=== PATIENT | female | born 1965 | race Caucasian/White ===

== ENCOUNTER 2022-04-11 14:11 | Inpatient (IN) | payer OTHER ==
[2022-04-11 16:43] LABS: #Lymphocytes 1.5 thou/uL (1.20-3.40); #Monocytes 1.1 thou/uL (0.11-0.59); #Neutrophils 12.1 thou/uL (1.40-6.50); %Basophils 0.3 % (0.0-1.0); %Eosinophils 0.3 % (0.0-10.0); %Lymphocytes 10.1 % (21.0-51.0); %Monocytes 7.3 % (0.0-10.0); %Neutrophils 82.1 % (42.0-75.0); Mean Corpuscular HGB CONC 31.9 g/dL (32.0-36.0); Mean Corpuscular Volume 94.1 fL (78.0-98.0); Mean Platelet Volume 9.3 fL (7.4-10.4); Platelet Count 167 thou/uL (130-400); RBC Distribution Width 13.5 % (11.5-14.5); Red Blood Cell (RBC) Count 5.66 mill/uL (4.20-5.40); White Blood Cell (WBC) Count 14.8 thou/uL (4.8-10.8)
[2022-04-11 17:06] LABS: ALT (SGPT) 7 U/L (8-55); AST (SGOT) 11 U/L (5-34); Albumin 4.1 g/dL (3.5-5.0); Alkaline Phosphatase 111 U/L (40-110); Anion Gap 18 mmol/L (10-20); BUN (Urea Nitrogen) 18 mg/dL (9.8-20.1); Bilirubin, Total 0.8 mg/dL (0.2-1.2); Calc. Creatinine Clearance 0 mL/min (70-130); Calcium 10.1 mg/dL (7.8-10.44); Carbon Dioxide 25 mmol/L (22-29); Chloride 97 mmol/L (98-107); Estimated GFR 55; Globulin 4.4 g/dL (2.4-3.5); Glucose 254 mg/dL (70-105); Potassium 3.8 mmol/L (3.5-5.1); Protein, Total 8.5 g/dL (6.0-8.3); Sodium 136 mmol/L (136-145)
[2022-04-11] MEDS ORDERED: Morphine 4 MG/ML VIAL ONE (19:50)
[2022-04-11] MEDS ORDERED: Morphine 2 MG/ML VIAL SLOW IVP SCH (23:45)
[2022-04-12 01:02] LABS: SARS-CoV-2 NAA Rapid Test Not Detected (NotDetected)
[2022-04-12 01:11] VITALS: BMI 46.7
[2022-04-12] MEDS ORDERED: Acetaminophen 650 MG Suppository PR PRN (05:21)
[2022-04-12] MEDS ORDERED: Acetaminophen 325 MG TAB PO PRN (05:21)
[2022-04-12] MEDS ORDERED: Ondansetron PF 4 MG/2 ML Vial IVP PRN (05:21)
[2022-04-12] MEDS ORDERED: Ondansetron ODT 4 MG TAB PO PRN (05:21)
[2022-04-12] MEDS ORDERED: Sodium Chloride 0.9% 500 ML IV SCH (05:30)
[2022-04-12] MEDS ORDERED: Sodium Chloride 0.9% 1,000 ML IV SCH ×2 (05:30)
[2022-04-12] MEDS ORDERED: Meropenem 1 GM in Sodium Chloride 0.9% 100 ML IVPB SCH (06:00)
[2022-04-12 06:08] LABS: #Lymphocytes 1.2 thou/uL (1.20-3.40); #Monocytes 1.6 thou/uL (0.11-0.59); #Neutrophils 12.1 thou/uL (1.40-6.50); %Basophils 0.1 % (0.0-1.0); %Eosinophils 0.2 % (0.0-10.0); %Lymphocytes 8.1 % (21.0-51.0); %Monocytes 10.4 % (0.0-10.0); %Neutrophils 81.2 % (42.0-75.0); Mean Corpuscular HGB CONC 32.3 g/dL (32.0-36.0); Mean Corpuscular Hemoglobin 30.1 pg (27.0-31.0); Mean Corpuscular Volume 93.2 fL (78.0-98.0); Mean Platelet Volume 9.4 fL (7.4-10.4); Platelet Count 181 thou/uL (130-400); RBC Distribution Width 13.6 % (11.5-14.5); Red Blood Cell (RBC) Count 4.67 mill/uL (4.20-5.40)
[2022-04-12 06:24] LABS: Anion Gap 14 mmol/L (10-20); BUN (Urea Nitrogen) 20 mg/dL (9.8-20.1); Calc. Creatinine Clearance 82 mL/min (70-130); Calcium 9.1 mg/dL (7.8-10.44); Carbon Dioxide 26 mmol/L (22-29); Chloride 101 mmol/L (98-107); Estimated GFR 43; Glucose 358 mg/dL (70-105); Potassium 4.5 mmol/L (3.5-5.1); Sodium 136 mmol/L (136-145)
[2022-04-12 07:45] LABS: Bacteria/HPF 3+ HPF (None Seen); Bilirubin Negative (Negative); Blood, Urine 2+ (Negative); Clarity Turbid (Clear); Glucose, Urine (Dipstick) 300 mg/dL (Negative); Ketone, Urine Trace mg/dL (Negative); Leukocyte 25 Leu/uL (Negative); Nitrite 1+ (Negative); Protein, Urine (Dipstick) 600 mg/dL (Neg-Trace); Specific Gravity, Urine 1.038 (1.002-1.036); Urobilinogen Normal mg/dL (Less than 2); WBC/HPF 21-50 HPF (0-3)
[2022-04-12] MEDS ORDERED: Non-Formulary Item 1 EACH (Oxycodone Hcl/Acetaminophen [Percocet] 10 MG/325 MG Tablet) PO PRN (09:31)
[2022-04-12] MEDS ORDERED: HYDROcodone/Acetaminophen 5/325 mg Tablet PO PRN (09:36)
[2022-04-12] MEDS ORDERED: Dextrose 5% in Water 1,000 ML IV PRN (09:43)
[2022-04-12] MEDS ORDERED: Dextrose 50% Abboject 50 ML SYRINGE SLOW IVP PRN (09:43)
[2022-04-12] MEDS ORDERED: Insulin Glargine 30 UNITS/0.3 ML VIAL SC SCH (10:00)
[2022-04-12] MEDS ORDERED: Nicotine 14 MG PATCH TD SCH (10:00)
[2022-04-12] MEDS ORDERED: Famotidine 20 MG TAB PO SCH (10:00)
[2022-04-12] MEDS ORDERED: Heparin 5,000 UNITS/ML VIAL SC SCH (10:00)
[2022-04-12] MEDS: oxyCODONE/Acetaminophen 5 mg/325 mg Tablet PO PRN ×3 (10:25→21:00)
[2022-04-12] MEDS: HumaLOG 300 UNITS/3 ML VIAL SC PRN ×2 (11:23→17:33)
[2022-04-12 11:30] LABS: Actual Bicarbonate (HCO3v) 27 mEq/L (22-28); Base Excess 0.2 mEq/L (-2.0 to +3.0); Calcium, Ionized (venous) 1.11 mmol/L (1.16-1.32); Chloride (VBG) 103 mmol/L (98-106); Hemoglobin (Hb) 14.1 g/dL (11.7-16.0); Potassium (VBG) 4.05 mmol/L (3.70-5.30); Sodium 136.9 mmol/L (133-146); pH (venous) 7.33 (7.32-7.43)
[2022-04-12] MEDS ORDERED: Furosemide 20 MG/2 ML VIAL SLOW IVP SCH (11:45)
[2022-04-12] MEDS: Methocarbamol 500 MG TAB PO SCH ×2 (14:12→21:01)
[2022-04-12] MEDS: Meropenem 1 GM in Sodium Chloride 0.9% 100 ML IVPB SCH (14:13)
[2022-04-12] MEDS: Heparin 5,000 UNITS/ML VIAL SC SCH ×2 (14:13→21:01)
[2022-04-12] MEDS: HYDROcodone/Acetaminophen 5/325 mg Tablet PO PRN ×2 (17:32→22:21)
[2022-04-12] MEDS: Pregabalin 75 MG CAP PO SCH (20:59)
[2022-04-12] MEDS ORDERED: PREGABALIN 225 MG PO SCH (21:00)
[2022-04-12] MEDS: Nortriptyline HCl 25 MG CAP PO SCH (21:01)
[2022-04-12] MEDS: Famotidine 20 MG TAB PO SCH (21:01)
[2022-04-12] MEDS: Atorvastatin Calcium 40 MG TAB PO SCH (21:01)
[2022-04-13] MEDS: Meropenem 1 GM in Sodium Chloride 0.9% 100 ML IVPB SCH ×3 (01:57→19:53)
[2022-04-13] MEDS: HYDROcodone/Acetaminophen 5/325 mg Tablet PO PRN ×3 (05:00→14:02)
[2022-04-13] MEDS: HumaLOG 300 UNITS/3 ML VIAL SC PRN (05:59)
[2022-04-13 06:14] LABS: #Eosinphils 0.1 thou/uL (0.0-0.7); #Lymphocytes 1.1 thou/uL (1.20-3.40); #Monocytes 1.5 thou/uL (0.11-0.59); #Neutrophils 12.6 thou/uL (1.40-6.50); %Basophils 0.2 % (0.0-1.0); %Eosinophils 0.6 % (0.0-10.0); %Lymphocytes 7.1 % (21.0-51.0); %Monocytes 9.5 % (0.0-10.0); %Neutrophils 82.8 % (42.0-75.0); Hemoglobin 12.7 g/dL (12.0-16.0); Mean Corpuscular Hemoglobin 29.3 pg (27.0-31.0); Mean Corpuscular Volume 94.7 fL (78.0-98.0); Mean Platelet Volume 9.4 fL (7.4-10.4); Platelet Count 168 thou/uL (130-400); RBC Distribution Width 13.6 % (11.5-14.5); Red Blood Cell (RBC) Count 4.34 mill/uL (4.20-5.40); White Blood Cell (WBC) Count 15.3 thou/uL (4.8-10.8)
[2022-04-13 07:36] LABS: ALT (SGPT) Less than 7 U/L (8-55); AST (SGOT) 8 U/L (5-34); Albumin 2.8 g/dL (3.5-5.0); Alkaline Phosphatase 86 U/L (40-110); Anion Gap 15 mmol/L (10-20); BUN (Urea Nitrogen) 21 mg/dL (9.8-20.1); Bilirubin, Total 0.4 mg/dL (0.2-1.2); Calc. Creatinine Clearance 90 mL/min (70-130); Calcium 8.8 mg/dL (7.8-10.44); Carbon Dioxide 25 mmol/L (22-29); Chloride 104 mmol/L (98-107); Estimated GFR 47; Globulin 3.6 g/dL (2.4-3.5); Glucose 176 mg/dL (70-105); Potassium 3.9 mmol/L (3.5-5.1); Protein, Total 6.4 g/dL (6.0-8.3); Sodium 140 mmol/L (136-145)
[2022-04-13] MEDS ORDERED: Lisinopril 5 MG TAB PO SCH (09:00)
[2022-04-13] MEDS: Famotidine 20 MG TAB PO SCH ×2 (09:06→19:54)
[2022-04-13] MEDS: Methocarbamol 500 MG TAB PO SCH ×3 (09:06→19:54)
[2022-04-13] MEDS: Pregabalin 75 MG CAP PO SCH ×2 (09:06→19:54)
[2022-04-13] MEDS: Heparin 5,000 UNITS/ML VIAL SC SCH ×3 (09:07→19:54)
[2022-04-13] MEDS: Insulin Glargine 30 UNITS/0.3 ML VIAL SC SCH (09:07)
[2022-04-13] MEDS: metroNIDAZOLE 500 MG in Premix Bag 1 BAG IVPB SCH ×2 (09:19→17:24)
[2022-04-13] MEDS: Nicotine 14 MG PATCH TD SCH (09:19)
[2022-04-13] MEDS: Azithromycin 500 MG in Sodium Chloride 0.9% 250 ML 250 ML IVPB SCH (10:58)
[2022-04-13] MEDS ORDERED: Morphine 2 MG/ML VIAL SLOW IVP PRN ×2 (12:46→15:16)
[2022-04-13] MEDS ORDERED: Furosemide 20 MG/2 ML VIAL SLOW IVP ONE (12:50)
[2022-04-13 13:19] LABS: Hemoglobin A1c 9.1 % (4.0-6.0)
[2022-04-13] MEDS: Albuterol Sulfate 1.25 MG/3 ML NEB NEB SCH ×3 (13:28→23:12)
[2022-04-13] MEDS: Atorvastatin Calcium 40 MG TAB PO SCH (19:54)
[2022-04-13] MEDS: Nortriptyline HCl 25 MG CAP PO SCH (19:54)
[2022-04-13] MEDS: oxyCODONE/Acetaminophen 5 mg/325 mg Tablet PO PRN (23:50)
[2022-04-14] MEDS: metroNIDAZOLE 500 MG in Premix Bag 1 BAG IVPB SCH ×3 (01:53→18:36)
[2022-04-14] MEDS: Meropenem 1 GM in Sodium Chloride 0.9% 100 ML IVPB SCH ×3 (05:18→19:40)
[2022-04-14] MEDS: oxyCODONE/Acetaminophen 5 mg/325 mg Tablet PO PRN (05:18)
[2022-04-14 06:14] LABS: #Lymphocytes 1.3 thou/uL (1.20-3.40); #Monocytes 1.1 thou/uL (0.11-0.59); #Neutrophils 10.1 thou/uL (1.40-6.50); %Basophils 0.3 % (0.0-1.0); %Eosinophils 0.2 % (0.0-10.0); %Lymphocytes 10.3 % (21.0-51.0); %Monocytes 8.4 % (0.0-10.0); %Neutrophils 80.8 % (42.0-75.0); Hemoglobin 12.3 g/dL (12.0-16.0); Mean Corpuscular HGB CONC 31.6 g/dL (32.0-36.0); Mean Corpuscular Hemoglobin 30.1 pg (27.0-31.0); Mean Corpuscular Volume 95.5 fL (78.0-98.0); Mean Platelet Volume 9.7 fL (7.4-10.4); Platelet Count 190 thou/uL (130-400); RBC Distribution Width 13.5 % (11.5-14.5); Red Blood Cell (RBC) Count 4.07 mill/uL (4.20-5.40); White Blood Cell (WBC) Count 12.6 thou/uL (4.8-10.8)
[2022-04-14 06:39] LABS: ALT (SGPT) Less than 7 U/L (8-55); AST (SGOT) 15 U/L (5-34); Albumin 2.6 g/dL (3.5-5.0); Alkaline Phosphatase 89 U/L (40-110); Anion Gap 12 mmol/L (10-20); BUN (Urea Nitrogen) 27 mg/dL (9.8-20.1); Bilirubin, Total 0.3 mg/dL (0.2-1.2); Calc. Creatinine Clearance 82 mL/min (70-130); Calcium 8.7 mg/dL (7.8-10.44); Carbon Dioxide 28 mmol/L (22-29); Chloride 104 mmol/L (98-107); Estimated GFR 43; Globulin 3.5 g/dL (2.4-3.5); Glucose 114 mg/dL (70-105); Magnesium 1.9 mg/dL (1.6-2.6); Phosphorus 4.5 mg/dL (2.3-4.7); Potassium 4.2 mmol/L (3.5-5.1); Protein, Total 6.1 g/dL (6.0-8.3); Sodium 140 mmol/L (136-145)
[2022-04-14] MEDS: Albuterol Sulfate 1.25 MG/3 ML NEB NEB SCH ×3 (06:42→19:17)
[2022-04-14] MEDS: HYDROcodone/Acetaminophen 5/325 mg Tablet PO PRN (10:25)
[2022-04-14] MEDS: Pregabalin 75 MG CAP PO SCH ×2 (10:25→19:39)
[2022-04-14] MEDS: Methocarbamol 500 MG TAB PO SCH ×3 (10:26→19:39)
[2022-04-14] MEDS: Famotidine 20 MG TAB PO SCH ×2 (10:27→19:39)
[2022-04-14] MEDS: Insulin Glargine 30 UNITS/0.3 ML VIAL SC SCH (10:27)
[2022-04-14] MEDS: Heparin 5,000 UNITS/ML VIAL SC SCH ×3 (10:28→19:38)
[2022-04-14] MEDS: Nicotine 14 MG PATCH TD SCH (10:28)
[2022-04-14] MEDS: Azithromycin 500 MG in Sodium Chloride 0.9% 250 ML 250 ML IVPB SCH (10:39)
[2022-04-14] MEDS ORDERED: Morphine 2 MG/ML VIAL SLOW IVP PRN (16:26)
[2022-04-14] MEDS: Nortriptyline HCl 25 MG CAP PO SCH (19:39)
[2022-04-14] MEDS: Atorvastatin Calcium 40 MG TAB PO SCH (19:39)
[2022-04-15] MEDS: Albuterol Sulfate 1.25 MG/3 ML NEB NEB SCH ×5 (00:09→22:47)
[2022-04-15] MEDS: metroNIDAZOLE 500 MG in Premix Bag 1 BAG IVPB SCH ×3 (02:06→17:43)
[2022-04-15] MEDS: Meropenem 1 GM in Sodium Chloride 0.9% 100 ML IVPB SCH ×3 (06:04→21:18)
[2022-04-15] MEDS ORDERED: SUMAtriptan Succinate 6 MG/0.5 ML VIAL SC SCH (09:00)
[2022-04-15] MEDS: Insulin Glargine 30 UNITS/0.3 ML VIAL SC SCH (09:48)
[2022-04-15] MEDS: Azithromycin 500 MG in Sodium Chloride 0.9% 250 ML 250 ML IVPB SCH (09:49)
[2022-04-15] MEDS: Methocarbamol 500 MG TAB PO SCH ×3 (09:54→21:14)
[2022-04-15] MEDS: Pregabalin 75 MG CAP PO SCH ×2 (09:55→21:15)
[2022-04-15] MEDS: Heparin 5,000 UNITS/ML VIAL SC SCH ×3 (09:56→21:14)
[2022-04-15] MEDS: Nicotine 14 MG PATCH TD SCH (09:56)
[2022-04-15] MEDS: Famotidine 20 MG TAB PO SCH ×2 (09:56→21:15)
[2022-04-15] MEDS: HumaLOG 300 UNITS/3 ML VIAL SC PRN (14:28)
[2022-04-15] MEDS: HYDROcodone/Acetaminophen 5/325 mg Tablet PO PRN (17:50)
[2022-04-15] MEDS ORDERED: hydrALAZINE 20 MG/ML VIAL SLOW IVP PRN (18:41)
[2022-04-15] MEDS: Nortriptyline HCl 25 MG CAP PO SCH (21:13)
[2022-04-15] MEDS: Atorvastatin Calcium 40 MG TAB PO SCH (21:16)
[2022-04-16] MEDS: HYDROcodone/Acetaminophen 5/325 mg Tablet PO PRN (02:15)
[2022-04-16] MEDS: metroNIDAZOLE 500 MG in Premix Bag 1 BAG IVPB SCH ×3 (02:16→22:12)
[2022-04-16] MEDS: Meropenem 1 GM in Sodium Chloride 0.9% 100 ML IVPB SCH ×2 (05:01→16:32)
[2022-04-16] MEDS: oxyCODONE/Acetaminophen 5 mg/325 mg Tablet PO PRN (05:11)
[2022-04-16 05:32] LABS: #Eosinphils 0.1 thou/uL (0.0-0.7); #Lymphocytes 1.4 thou/uL (1.20-3.40); #Monocytes 1.1 thou/uL (0.11-0.59); #Neutrophils 8.4 thou/uL (1.40-6.50); %Basophils 0.4 % (0.0-1.0); %Eosinophils 1.1 % (0.0-10.0); %Lymphocytes 12.7 % (21.0-51.0); %Monocytes 9.6 % (0.0-10.0); %Neutrophils 76.1 % (42.0-75.0); Hemoglobin 11.9 g/dL (12.0-16.0); Mean Corpuscular HGB CONC 30.9 g/dL (32.0-36.0); Mean Corpuscular Hemoglobin 29.4 pg (27.0-31.0); Mean Corpuscular Volume 94.9 fL (78.0-98.0); Mean Platelet Volume 8.8 fL (7.4-10.4); Platelet Count 233 thou/uL (130-400); RBC Distribution Width 13.4 % (11.5-14.5); Red Blood Cell (RBC) Count 4.04 mill/uL (4.20-5.40); White Blood Cell (WBC) Count 11.1 thou/uL (4.8-10.8)
[2022-04-16] MEDS: Albuterol Sulfate 1.25 MG/3 ML NEB NEB SCH ×2 (05:37→13:34)
[2022-04-16 05:51] LABS: Anion Gap 11 mmol/L (10-20); BUN (Urea Nitrogen) 24 mg/dL (9.8-20.1); Calc. Creatinine Clearance 125 mL/min (70-130); Carbon Dioxide 29 mmol/L (22-29); Chloride 106 mmol/L (98-107); Estimated GFR 70; Glucose 130 mg/dL (70-105); Potassium 4.2 mmol/L (3.5-5.1); Sodium 142 mmol/L (136-145)
[2022-04-16] MEDS: Azithromycin 500 MG in Sodium Chloride 0.9% 250 ML 250 ML IVPB SCH (08:16)
[2022-04-16] MEDS: Heparin 5,000 UNITS/ML VIAL SC SCH ×3 (08:20→21:46)
[2022-04-16] MEDS: Famotidine 20 MG TAB PO SCH ×2 (08:20→21:46)
[2022-04-16] MEDS: Insulin Glargine 30 UNITS/0.3 ML VIAL SC SCH (08:21)
[2022-04-16] MEDS: Pregabalin 75 MG CAP PO SCH ×2 (08:22→21:47)
[2022-04-16 09:22] LABS: INR-International Normal Ratio 1.1; PTT 45.7 sec (22.9-36.1); Prothrombin Time 14.6 sec (12.0-14.7)
[2022-04-16] MEDS: Methocarbamol 500 MG TAB PO SCH ×3 (09:38→21:46)
[2022-04-16] MEDS: Nicotine 14 MG PATCH TD SCH (09:38)
[2022-04-16] MEDS ORDERED: fentaNYL Citrate/PF 100 MCG/2 ML SYRINGE ONE (13:51)
[2022-04-16] MEDS ORDERED: Lidocaine 1% MPF 2 ML VIAL ONE (14:15)
[2022-04-16] MEDS ORDERED: Glycopyrrolate 0.2 MG/ML 5 ML SYRINGE ONE (14:15)
[2022-04-16] MEDS ORDERED: Ondansetron PF 4 MG/2 ML Vial ONE (14:15)
[2022-04-16] MEDS ORDERED: NEOSTIGMINE 3 MG/3 ML SYR 3 MG/3 ML SYRINGE ONE (14:15)
[2022-04-16] MEDS ORDERED: PROPOFOL 200 MG/20 ML VIAL ONE (14:15)
[2022-04-16] MEDS ORDERED: Rocuronium Bromide 10 MG/ML (10ML VIAL) ONE (14:15)
[2022-04-16] MEDS ORDERED: Dexamethasone 20 MG/5 ML VIAL ONE (14:15)
[2022-04-16] MEDS ORDERED: SUGAMMADEX SODIUM 200 MG/2 ML VIAL ONE (15:33)
[2022-04-16] MEDS ORDERED: Promethazine HCl 25 MG/ML VIAL IVPB PRN (15:44)
[2022-04-16] MEDS ORDERED: Ondansetron HCl/PF 4 MG/2 ML Vial IVP PRN (15:44)
[2022-04-16] MEDS ORDERED: Promethazine HCl 25 MG/ML VIAL IM PRN (15:44)
[2022-04-16] MEDS ORDERED: Lisinopril 5 MG TAB PO SCH (16:15)
[2022-04-16] MEDS: Nortriptyline HCl 25 MG CAP PO SCH (21:46)
[2022-04-16] MEDS: Atorvastatin Calcium 40 MG TAB PO SCH (21:47)
[2022-04-16] MEDS: HumaLOG 300 UNITS/3 ML VIAL SC PRN (22:02)
[2022-04-17] MEDS: Meropenem 1 GM in Sodium Chloride 0.9% 100 ML IVPB SCH ×3 (00:16→16:59)
[2022-04-17] MEDS: Albuterol Sulfate 1.25 MG/3 ML NEB NEB SCH ×6 (01:07→23:37)
[2022-04-17] MEDS: metroNIDAZOLE 500 MG in Premix Bag 1 BAG IVPB SCH ×3 (05:10→20:20)
[2022-04-17] MEDS: HumaLOG 300 UNITS/3 ML VIAL SC PRN ×3 (06:09→22:14)
[2022-04-17] MEDS: oxyCODONE/Acetaminophen 5 mg/325 mg Tablet PO PRN ×3 (06:15→20:20)
[2022-04-17] MEDS: Methocarbamol 500 MG TAB PO SCH ×3 (08:28→20:21)
[2022-04-17] MEDS: Nicotine 14 MG PATCH TD SCH (08:28)
[2022-04-17] MEDS: Pregabalin 75 MG CAP PO SCH ×2 (08:29→20:21)
[2022-04-17] MEDS: Famotidine 20 MG TAB PO SCH ×2 (08:30→20:22)
[2022-04-17] MEDS: Lisinopril 5 MG TAB PO SCH (08:30)
[2022-04-17] MEDS: Insulin Glargine 30 UNITS/0.3 ML VIAL SC SCH (08:32)
[2022-04-17] MEDS: Heparin 5,000 UNITS/ML VIAL SC SCH ×3 (08:32→20:21)
[2022-04-17] MEDS: HYDROcodone/Acetaminophen 5/325 mg Tablet PO PRN (12:11)
[2022-04-17] MEDS ORDERED: SUMAtriptan Succinate 6 MG/0.5 ML VIAL SC SCH (16:00)
[2022-04-17] MEDS: Nortriptyline HCl 25 MG CAP PO SCH (20:21)
[2022-04-17] MEDS: Atorvastatin Calcium 40 MG TAB PO SCH (20:22)
[2022-04-18] MEDS: Meropenem 1 GM in Sodium Chloride 0.9% 100 ML IVPB SCH ×3 (00:25→17:13)
[2022-04-18] MEDS: oxyCODONE/Acetaminophen 5 mg/325 mg Tablet PO PRN ×3 (00:30→20:40)
[2022-04-18] MEDS: metroNIDAZOLE 500 MG in Premix Bag 1 BAG IVPB SCH ×3 (04:52→21:32)
[2022-04-18] MEDS: HumaLOG 300 UNITS/3 ML VIAL SC PRN ×4 (06:11→22:02)
[2022-04-18] MEDS: Albuterol Sulfate 1.25 MG/3 ML NEB NEB SCH ×4 (06:52→23:12)
[2022-04-18] MEDS: Lisinopril 5 MG TAB PO SCH (08:42)
[2022-04-18] MEDS: Famotidine 20 MG TAB PO SCH ×2 (08:42→21:32)
[2022-04-18] MEDS: Methocarbamol 500 MG TAB PO SCH ×3 (08:42→21:33)
[2022-04-18] MEDS: Pregabalin 75 MG CAP PO SCH ×2 (08:43→21:33)
[2022-04-18] MEDS: Insulin Glargine 30 UNITS/0.3 ML VIAL SC SCH (08:44)
[2022-04-18] MEDS: Heparin 5,000 UNITS/ML VIAL SC SCH ×3 (08:44→22:04)
[2022-04-18] MEDS: Nicotine 14 MG PATCH TD SCH (08:44)
[2022-04-18] MEDS: HYDROcodone/Acetaminophen 5/325 mg Tablet PO PRN ×3 (09:00→22:45)
[2022-04-18] MEDS ORDERED: Vancomycin 1 GM in Premix Bag 1 BAG IVPB SCH (16:15)
[2022-04-18] MEDS: Atorvastatin Calcium 40 MG TAB PO SCH (21:32)
[2022-04-18] MEDS: Nortriptyline HCl 25 MG CAP PO SCH (21:33)
[2022-04-19] MEDS: Meropenem 1 GM in Sodium Chloride 0.9% 100 ML IVPB SCH ×2 (01:42→09:14)
[2022-04-19] MEDS: metroNIDAZOLE 500 MG in Premix Bag 1 BAG IVPB SCH ×2 (04:22→11:52)
[2022-04-19] MEDS: oxyCODONE/Acetaminophen 5 mg/325 mg Tablet PO PRN ×3 (05:20→15:03)
[2022-04-19] MEDS: Albuterol Sulfate 1.25 MG/3 ML NEB NEB SCH ×2 (06:47→12:30)
[2022-04-19] MEDS ORDERED: Furosemide 40 MG/4 ML VIAL SLOW IVP SCH (07:45)
[2022-04-19] MEDS ORDERED: Furosemide 20 MG/2 ML VIAL SLOW IVP SCH (07:45)
[2022-04-19] MEDS: Heparin 5,000 UNITS/ML VIAL SC SCH ×2 (09:13→15:03)
[2022-04-19] MEDS: Nicotine 14 MG PATCH TD SCH (09:13)
[2022-04-19] MEDS: Insulin Glargine 30 UNITS/0.3 ML VIAL SC SCH (09:14)
[2022-04-19] MEDS: Famotidine 20 MG TAB PO SCH (09:14)
[2022-04-19] MEDS: Lisinopril 5 MG TAB PO SCH (09:14)
[2022-04-19] MEDS: Methocarbamol 500 MG TAB PO SCH ×2 (09:14→15:02)
[2022-04-19] MEDS: Pregabalin 75 MG CAP PO SCH (09:14)
[2022-04-19] MEDS: HumaLOG 300 UNITS/3 ML VIAL SC PRN (11:51)
[2022-04-19 17:15] VITALS: TEMP 98.1
[2022-04-19 17:35] VITALS: BP 151/93
[2022-04-19] MEDS ORDERED: Sulfameth/Trimethoprim DS 800-160mg TAB PO SCH (21:00)
== END 2022-04-19 17:30 | disposition home or self-care (01) | DRG 698 ==
LOC: ERS 14:11 → SURG B 21:58 → OBSVTOIN 04-12 16:39
PROVIDERS: ADMIT Student in an Organized Health Care Education/Training Program; ATTEND Internal Medicine
PROC: 0T25X0Z Change Drainage Device in Kidney, External Approach (ICD-10-PCS; principal; 2022-04-16)
PROC: 0T25X0Z Change Drainage Device in Kidney, External Approach (ICD-10-PCS; 2022-04-17)
DX: T83.090A Other mechanical complication of cystostomy catheter, initial encounter (principal); A41.51 Sepsis due to Escherichia coli [E. coli]; J18.9 Pneumonia, unspecified organism; N39.0 Urinary tract infection, site not specified; Z68.42 Body mass index [BMI] 45.0-49.9, adult; Z16.24 Resistance to multiple antibiotics; J96.11 Chronic respiratory failure with hypoxia; N17.9 Acute kidney failure, unspecified; J81.1 Chronic pulmonary edema; E78.5 Hyperlipidemia, unspecified; E11.40 Type 2 diabetes mellitus with diabetic neuropathy, unspecified; J44.9 Chronic obstructive pulmonary disease, unspecified; G89.29 Other chronic pain; F17.210 Nicotine dependence, cigarettes, uncomplicated; Z20.822 Contact with and (suspected) exposure to COVID-19; E66.01 Morbid (severe) obesity due to excess calories; I50.9 Heart failure, unspecified; G47.33 Obstructive sleep apnea (adult) (pediatric); E88.09 Other disorders of plasma-protein metabolism, not elsewhere classified; Z79.899 Other long term (current) drug therapy; Z88.1 Allergy status to other antibiotic agents; Z88.0 Allergy status to penicillin; Z88.8 Allergy status to other drugs, medicaments and biological substances; Z79.4 Long term (current) use of insulin; Z79.84 Long term (current) use of oral hypoglycemic drugs
CPT/HCPCS: 36415; 36416; 50430; 50433; 71045; 74176; 74485; 80048; 80053; 81001; 82805; 83036; 83605; 83690; 83735; 83880; 84100; 84145; 85025; 85610; 85730; 87040; 87070; 87077; 87086; 87186; 87205; 87811; 90471; 90732; 93005; 93010; 93306; 94640; 96365; 96372; 96375; 96376; 99284; C1729; G0009; G0378; J0360; J0456; J1100; J1642; J1644; J1815; J1940; J2185; J2270; J2405; J2704; J3030; J3370; J3490; J7030; J7050; J7620; U0002

== ENCOUNTER 2022-07-10 11:12 | Outpatient (CLI) | payer OTHER | END 2022-07-10 11:13 | disposition home or self-care (01) | PROVIDERS: ATTEND Family Medicine | DX: R53.1 Weakness (principal); Z99.3 Dependence on wheelchair ==